=== PATIENT | male | born 1960 | race Caucasian/White ===

== ENCOUNTER 2019-12-03 15:34 | Outpatient (CLI) | payer OTHER, SELFPAY ==
--- NOTE | ~2019-12-03 | MR_ITS ---
EXAMINATION: MR knee RT wo con DATE: 12/03/2019 16:31 INDICATION: Right knee pain TECHNIQUE: Magnetic resonance imaging (MRI) of the right knee was performed without intravenous contr ast. Sequences included coronal PD-weighted FSE, coronal PD-weighted FS FSE, sagittal T2-weighted FS E, sagittal PD-weighted FS FSE and axial PD weighted fat saturated FSE. COMPARISON: None. FINDINGS: Medial compartment: Complex medial meniscal tear with full-thickness radial component of the posterior horn and with long itudinal oblique tear plane extending to the inferior articular surface in the more medial posterior horn and in the meniscal body. Small region of shallow chondral ulceration without degenerative subar ticular changes at the central weightbearing medial femoral condyle. Lateral compartment: Lateral meniscus is normal. Shallow chondral fissuring at the central aspect of the lateral tibial pl ateau and juxtaposed anterior weightbearing lateral femoral condyle. Deep chondral fissuring with und erlying subarticular edema at the posteromedial margin of the lateral tibial plateau. Patellofemoral compartment: Partial-thickness chondral fissuring involving up to 50% the cartilage thickness at the central aspec t of the patellar apical ridge. Partial-thickness cartilage loss with chondral surface regularity gerardo ng the lateral patellar facet. This approaches full-thickness at the superolateral aspect of the medi al facet where there is a tiny focus of subarticular edema. Deep chondral fissuring with subtle under lying cortical irregularity and minimal subarticular edema along the trochlear groove and inferomedia l aspect of the medial trochlea. Ligaments and tendons: Anterior and posterior cruciate ligaments are normal. Mild thickening and mild increased signal witho ut surrounding edema at the proximal medial collateral ligament consistent with scarring related to c hronic sprain. The fibular collateral ligament is normal. The extensor mechanism is normal. The visua lized medial and lateral hamstring tendons as well as the iliotibial band are normal. Fluid: Large right knee joint effusion. No loose osteochondral bodies identified. Large prepatellar bursal f luid collection measuring 4.7 cm caudally, 5.5 cm medial collateral and up to 1.5 cm in thickness wit h small amount of internal synovitis. Subcutaneous edema at the anterior knee. Osseous/other: Small geographic region of likely red marrow reexpansion at the posterior metaphyseal region of the d istal femur which demonstrates fat saturation on the coronal images. No fracture or pathologic marrow replacing process. IMPRESSION: 1. Complex medial meniscal tear. 2. Mild tricompartmental osteoarthritis with regions of high-grade chondromalacia in the lateral and patellofemoral compartments. 3. Large likely reactive right knee joint effusion. 4. Moderate prepatellar bursitis. Reviewed, dictated and finalized at location B. IMPRESSION: 1. Complex medial meniscal tear. 2. Mild tricompartmental osteoarthritis with regions of high-grade chondromalac ia in the lateral and patellofemoral compartments. 3. Large likely reactive right knee joint effusion. 4. Moderate prepatellar bursitis.
== END 2019-12-03 15:35 | disposition home or self-care (01) ==
PROVIDERS: PCP Internal Medicine; Visit Provider Orthopaedic Surgery
DX: M25.561 Pain in right knee (principal); S83.231A Complex tear of medial meniscus, current injury, right knee, initial encounter; M94.261 Chondromalacia, right knee; M25.461 Effusion, right knee; M71.561 Other bursitis, not elsewhere classified, right knee
CPT/HCPCS: 73721

== ENCOUNTER 2023-08-10 09:34 | Outpatient (CLI) | payer OTHER, SELFPAY ==
--- NOTE | ~2023-08-10 | MR_ITS ---
EXAMINATION: MR shoulder RT wo con DATE: 08/10/2023 10:20 INDICATION: Right shoulder pain TECHNIQUE: Magnetic resonance imaging (MRI) of the right shoulder was performed without intravenous c ontrast. Sequences included axial PD-weighted FS FSE, coronal oblique PD-weighted FS FSE, coronal obl ique T2-weighted FS FSE, sagittal PD-weighted FS FSE, and sagittal T1-weighted SE. COMPARISON: None. FINDINGS: Coracoacromial arch: The acromion undersurface is curved in morphology (type II). The coracoacromial ligament is normal. M oderate acromioclavicular osteoarthritis. Rotator cuff: Near complete full-thickness tear of the supraspinatus tendon with only a small portion of the tendon contributing to the conjoined portion of the supraspinatus and infraspinatus tendons remaining intac t. The medial fracture margin is retracted medially and posteriorly. The tear begins anteriorly along the anterior aspect of the superior facet footplate with small amount of residual tendon material pa ssed to the more posterior aspect of the superior facet. Cross the level of the apex of the humeral h ead the full-thickness tear defect measures approximately 3.5 cm medial to lateral and 3.0 cm anterop osteriorly. Moderate tendinopathy of the anterior infraspinatus tendon, mild at the posterior tendon without discrete tear. The teres minor tendon is normal. There is mild subscapularis tendinopathy wit hout tear. There is medial retraction and mild fatty atrophy of the supraspinatus muscle belly. Biceps tendon, glenoid labrum and glenohumeral cartilage: Moderate tendinopathy without discrete tear at the junction of the intra-articular and extra articula r portions of the long head biceps tendon. There is a superior, anterior to posterior tear of the gle noid labrum (SLAP tear) extending from the 10:30-11:30 position. There is a more anterior small tear at the 1:00-12:00 position of the anterosuperior chondral labral junction. Additional small full-thic kness chondral labral delamination at the 9:00 position of the posterior glenoid . Glenoid cartilage is otherwise normal. Mild partial-thickness cartilage loss with smooth chondral surface along the inf eromedial aspect of the humeral head. Fluid: There is a small glenohumeral joint effusion with synovitis in the posterior and axillary recess of t he joint space. There is extension of fluid through the full-thickness rotator cuff tear defect into the subacromial subdeltoid bursa and from there into the acromioclavicular joint. There is also exten av of a large amount of fluid into the subcoracoid bursa. No loose osteochondral bodies. Small amou nt of fluid in the subacromial/subdeltoid bursa consistent with mild bursitis. Bones: Bone alignment is normal. No fracture or pathologic marrow replacing process. IMPRESSION: 1. Full-thickness tear involving nearly the entire distal supraspinatus tendon small portion of the c ontribution to the conjoined portion of the supraspinatus and infraspinatus tendons remaining intact. 2. Mild glenohumeral osteoarthritis with small tear at the posterosuperior glenoid labrum and small d elaminating tears at the chondral labral junction at the superior and posterior glenoid. 3. Large amount of fluid in the subcoracoid bursa and small amount of fluid in the subdermal/subdelto id bursa and acromioclavicular joint space likely representing decompression of a small glenohumeral joint effusion through the full-thickness rotator cuff tear defect. 4. Moderate tendinopathy without tear at the junction of the intra-articular and extra articular port ion of the long head biceps tendon. Reviewed, dictated and finalized at location B. IMPRESSION: 1. Full-thickness tear involving nearly the entire distal supraspinatus tendon small portion of the con
== END 2023-08-10 09:35 ==
PROVIDERS: PCP Family Medicine
DX: M19.011 Primary osteoarthritis, right shoulder (principal); M75.101 Unspecified rotator cuff tear or rupture of right shoulder, not specified as traumatic
CPT/HCPCS: 73221